=== PATIENT | male | born 1955 | race Caucasian/White ===

== ENCOUNTER → 2017-02-07 10:17 | Outpatient (CLI) | payer BC ==
[2015-01-06 05:58] VITALS: BMI 31.8
[~2017-02-07 10:17] MED LIST: CLARITIN-D1 TAB.SR . PO; HYDROCODONE-APA1 TAB PO; NORVASC10 MG PO; PERCOCET 10/3251 TA1 PO; PROVENTIL HFA6.7 GM INH; TENORMIN50 MG PO; ZESTRIL40 MG PO
== END | disposition home or self-care (01) ==
LOC: D.MRI 10:17
DX: M75.41 Impingement syndrome of right shoulder (principal)

== ENCOUNTER 2017-02-22 05:22 | Day surgery (SDC) | payer BC ==
[2017-02-21 09:29] LABS: HEMATOCRIT 40.6 % (42.0-54.0); MCH 31.5 pg (26.0-34.0); MCHC 34.5 g/dL (31.0-37.0); MCV 91.4 fL (80.0-100.0); MEAN PLATELET VOLUME 8.3 fL (7.4-10.4); RBC 4.44 10x6/uL (4.20-6.10); RDW 13.1 % (11.5-14.5); WBC 8.8 10x3/uL (4.8-10.8)
[~2017-02-22] VITALS: Ht 177.8 cm; Wt 102.1 kg
[~2017-02-22 05:22] MED LIST changes: -CLARITIN-D1 TAB.SR . PO
[2017-02-22] MEDS ORDERED: CLARITIN-D1 TAB.SR . PO (08:47)
[2017-02-22 08:56] VITALS: BP 125/767; Ht 177.8 cm; Wt 102.1 kg
[2017-02-22] MEDS ORDERED: HYDROCODONE-APA1 TAB PO (11:50)
--- NOTE | 2017-02-22 15:29 | NUR ---
5473 DISCHARGE INSTRUCTIONS AND PENDELUM EXERCISES DEMONSTRATED TO PATIENT; VERBALIZED UNDERSTANDING
--- NOTE | 2017-02-22 17:40 | OP ---
PATIENT NAME: MISTI SMITH MEDICAL RECORD: [id number] :51 LOCATION:D[facility] ADMISSION DATE: SURGEON: MARIA VICTORIA BUSTOS MD DATE OF OPERATION: 02/22/2017 Orthopedic Surgery Operative Note PREOPERATIVE DIAGNOSIS: 1. Rotator cuff tear of the right shoulder. 2. Impingement syndrome of the right shoulder. 3. Acromioclavicular arthritis. POSTOPERATIVE DIAGNOSES: 1. Rotator cuff tear of the right shoulder. 2. Impingement syndrome of the right shoulder. 3. Acromioclavicular arthritis. 4. Severe biceps tendinitis. PROCEDURES: 1. Arthroscopic rotator cuff repair. 2. Arthroscopic distal clavicle excision. 3. Arthroscopic biceps tenotomy. 4. Arthroscopic subacromial decompression with acromioplasty and bursectomy. SURGEON: Maria Victoria Bustos MD ANESTHESIA: General. INTRAOPERATIVE COMPLICATIONS: None. SUMMARY OF PATHOLOGIC FINDINGS: The patient did have a near complete tear of the biceps tendon. The patient also had a full thickness rotator cuff tear, type 3 acromion, and grade IV chondromalacia of the acromioclavicular joint. OPERATIVE SUMMARY IN DETAIL: After obtaining the appropriate preoperative orthopedic surgery consents as well as anesthetic consultation, evaluation and clearance, the patient was brought to the operating room and placed on the operating room table in supine position. After adequate general laryngeal mask airway was administered, the patient was placed in left lateral decubitus position. All pressure points were well padded to include down leg peroneal pad as well as axillary roll. The patient was held firmly to the operating table using the vacuum pack suction system. Right upper extremity and shoulder were then prepped and draped in a routine sterile fashion. The arm was held in the Arthrex traction boom at 30 degrees of forward flexion, 30 degrees of abduction with 10 pounds of traction laterally. Arthroscopy was established in the glenohumeral joint from a posterior portal. Anterior portal was established in the anterior safe interval. Diagnostic arthroscopy showed a full thickness rotator cuff tearing as well as biceps tendon tearing. Biceps tendon was taken down completely with the arthroscopic resector. At this point, a transrotator cuff portal was created to decorticate the medial aspect of the supraspinatus tendinous footprint and debride portions of the torn rotator cuff. Attention was then turned to the subacromial space. While on the subacromial space, the [place] tissue ablation system was utilized to denude the undersurface of the acromion of all soft tissue elements and release the coracoacromial ligament. A 5-0 barrel bur was used to perform acromioplasty at the level of OPERATIVE REPORT [id number] SARAHMISTI acromioclavicular joint, through a separate anterior arthroscopic portal, 1 cm distal clavicle was excised under direct arthroscopic visualization. Attention was then returned to the rotator cuff tear. Further portions of the greater tuberosity supraspinatus tendinous footprint was decorticated for bleeding bone. A single #2 FiberTape was passed in an inverted mattress fashion and then it was anchored laterally with a 5.5 SwiveLock from Arthrex. Having completed this, arthroscopy portals were closed in routine interrupted fashion using 4-0 Prolene. Sterile dressings were applied. The patient was awakened, taken to recovery room in stable condition. All final needle and sponge counts were correct. TRANSINT:[id number] Voice Confirmation ID: [id number] DOCUMENT ID: [id number] AKASH BARBA, MARIA VICTORIA DELA CRUZ at 1740 CC: [id number] DICTATION DATE: 02/22/17 1154 RUBBISH COLLECTOR: 02/22/17 1348 [facility] 02/22/17 [facility] [address] [place] [address]
== END 2017-02-22 13:35 | disposition home or self-care (01) ==
LOC: D.OPS 05:22 → D.PAN 08:30 → D.OPS 08:30 → D.PAN 09:30 → D.OPS 09:45 → D.PAN 10:10 → D.OPS 10:20 → D.PAN 10:20 → D.OPS 13:35
PROVIDERS: Anesthesiology
DX: M75.121 Complete rotator cuff tear or rupture of right shoulder, not specified as traumatic (principal); M75.41 Impingement syndrome of right shoulder; M13.811 Other specified arthritis, right shoulder; M75.21 Bicipital tendinitis, right shoulder

== ENCOUNTER 2019-06-26 06:00 | Day surgery (SDC) | payer MEDICARE, OTHER ==
[~2019-06-26] VITALS: Ht 177.8 cm; Wt 100.7 kg
[~2019-06-26 06:00] MED LIST changes: +CLARITIN-D1 TAB.SR . PO; +LISINOPRIL5 MG PO
[2019-06-26 06:22] LABS: HEMATOCRIT 36.6 % (42.0-54.0); HEMOGLOBIN 13.4 g/dL (13.5-17.5); MCH 31.2 pg (26.0-34.0); MCHC 36.6 g/dL (31.0-37.0); MCV 85.1 fL (80.0-100.0); RBC 4.3 10x6/uL (4.20-6.10); RDW 18.6 % (11.5-14.5); WBC 7.9 10x3/uL (4.8-10.8)
[2019-06-26] MEDS ORDERED: MUCINEX600 MG PO (07:13)
[2019-06-26 07:14] VITALS: BP 103/62; Ht 177.8 cm; Wt 100.7 kg
--- NOTE | 2019-06-26 09:48 | NUR ---
0900-REC'D FROM SURGERY. AWAKE AND ALERT, IV PATENT TO RIGHT WRIST,DENIES PAIN,VSS. CL IN EASY REACH, AT BEDSIDE. FULL LIQUID TRAY TO ROOM.
--- NOTE | 2019-06-26 09:48 | NUR ---
0945-DISCHARGE CRITERIA MET. AMBULATED TO RESTROOM AND URINATED WITHOUT DIFFICULTIES. VSS. TOLERATED FULL LIQUID TRAY. IV REMOVED FROM RIGHT WRIST WITH CATH INTACT,DISPOSED INTO SHARPS CONTAINER. REVIEWED DISCAHRGE PAPERWORK WITH PT AND SPOUSE. VERBALIZED UNDERSTANDING WITHOUT QUESTIONS OR CONCERNS. ESCORTED OUT VIA W/C BY VOLUNTEER WITH DRIVING HOME. PAPERWORK IN HAND
--- NOTE | 2019-06-26 10:24 | OP ---
PATIENT NAME: MISTI SMITH MEDICAL RECORD: [id number] :51 LOCATION:[facility] ADMISSION DATE: SURGEON: WARREN SANCHEZ MD DATE OF OPERATION: 06/26/2019 SURGEON: Warren Sanchez MD ANESTHESIA: TIVA by Matthew Keller CRNA DIAGNOSES: Elevated PSA 3.42 on November 2018, bladder outlet obstruction. PROCEDURE: Cystoscopy and transrectal ultrasound with prostate biopsy. FINDINGS: On cystoscopy, bladder neck obstruction with nonobstructive lateral lobes. Single ureteral orifices bilaterally with no bladder tumors. On transrectal ultrasound, 27-gram prostate with intraprostatic stones. SPECIMENS: Prostate biopsy cores. BLOOD LOSS: Minimal. CLINICAL HISTORY: This is a 63-year-old male, who had a PSA of 3.42 in November 2018. In April of 2018, the PSA was also 3.4. Back then, I had suggested that he get a prostate biopsy, but he did not wish to have it done at that time. In the meantime, he has been on testosterone injections and his PSA has risen very slightly. He does have issues with voiding including urge incontinence. He has been started on oxybutynin by his primary care doctor. Also, has nocturia times 3-4 and during the daytime, he has frequency every 1 hour. On digital rectal examination, a moderate-sized prostate was noted with no nodules on the prostate. He is not allergic to any medications. He comes today to have cystoscopy and prostate biopsy performed. He was given Ancef conduit bender to the OR. DESCRIPTION OF PROCEDURE: The patient was given IV sedation. He was then placed into the lithotomy position and prepped and draped. A 17-Sami cystoscope with 30-degree lens was used for visualization. Findings are as outlined above. The lateral lobes of the prostate are not obstructive. The main site of obstruction is the bladder neck. If the biopsy turns out to be benign, he would benefit from a UroLift procedure in a box configuration around the bladder neck. The bladder was emptied through the cystoscope sheath and then the scope was removed. We then introduced the transrectal ultrasound probe. Prostate size measurements were obtained. The prostate is relatively small at 27 grams. There are intraprostatic stones noted. Sextant biopsies were obtained with at least 3 cores from each sextant. Once all the specimens were obtained, the procedure was terminated. I will see the patient in followup in 2 weeks' time. TRANSINT:[id number] Voice Confirmation ID: [id number] DOCUMENT ID: [id number] OPERATIVE REPORT [id number] MISTI SMITH ROBERT S MD at 1024 CC: [id number] DICTATION DATE: 06/26/19903 SPLICING SUPERVISOR: 06/26/19917 [facility] 06/26/[address] [address]
[2019-07-28] MEDS ORDERED: TENORMIN50 MG PO (14:14)
[2019-07-28] MEDS ORDERED: FLUTICASONE PRO16 GM NASAL (14:15)
[2019-07-28] MEDS ORDERED: SINGULAIR10 MG PO (14:16)
[2019-07-28] MEDS ORDERED: PEPCID AC20 MG PO (14:16)
[2019-07-28] MEDS ORDERED: BREO ELLIPTA 11 EACH INH (14:17)
== END 2019-06-26 09:30 | disposition home or self-care (01) ==
LOC: D.OPS 06:00
PROVIDERS: Anesthesiology; ATTEND Urology
DX: N32.0 Bladder-neck obstruction (principal); N42.0 Calculus of prostate; Z01.812 Encounter for preprocedural laboratory examination

== ENCOUNTER 2019-07-29 05:06 | Day surgery (SDC) | payer MEDICARE, OTHER ==
[~2019-07-29] VITALS: Ht 177.8 cm; Wt 101.2 kg
[~2019-07-29 05:06] MED LIST changes: +BREO ELLIPTA 11 EACH INH; +FLUTICASONE PRO16 GM NASAL; +MUCINEX600 MG PO; +PEPCID AC20 MG PO; +SINGULAIR10 MG PO
[2019-07-29 05:40] LABS: CALC OSMOLALITY 265 mosm/kg (275-300); CALCIUM 8.5 mg/dL (8.5-10.1); CARBON DIOXIDE 27.4 mmol/L (21.0-32.0); CHLORIDE - SERUM 97 mmol/L (98-107); GLUCOSE 109 mg/dL (74-106); POTASSIUM - SERUM 4.5 mmol/L (3.5-5.1); SODIUM 133 mmol/L (136-145); UREA NITROGEN 10 mg/dL (7-18); eGFR NON AFRICAN AMERICAN 80 mL/min (90-120)
[2019-07-29 05:46] LABS: INR 1.1 (0.85-1.17); PROTIME 13.7 SECONDS (11.6-15.0)
[2019-07-29 06:04] LABS: BASOPHILS 0 % (0-2); EOSINOPHILS 1.4 % (0-7); HEMOGLOBIN 13.3 g/dL (13.5-17.5); IMMATURE GRANULOCYTES 0.5 % (0-5); LYMPHOCYTES 10.7 % (15-50); MCH 33.1 pg (26.0-34.0); MCHC 35.9 g/dL (31.0-37.0); MEAN PLATELET VOLUME 8.5 fL (7.4-10.4); MONOCYTES 13.6 % (2-11); NEUTROPHILS 73.8 % (40-80); RBC 4.02 10x6/uL (4.20-6.10); RDW 14.5 % (11.5-14.5); WBC 6.4 10x3/uL (4.8-10.8)
[2019-07-29] MEDS ORDERED: SULFAMETHOXAZOL1 TA2 PO (06:16)
[2019-07-29 06:29] VITALS: BP 134/79; Ht 177.8 cm; Wt 101.2 kg
[2019-07-29 06:31] LABS: PLATELET COUNT 242 10x3/uL (130-400)
--- NOTE | 2019-07-29 08:53 | NUR ---
0850 IV DC'ED WITH 175MLM LTC. DRESSING TO SITE CDI. Alexus JULIEN R.N.
--- NOTE | 2019-07-29 08:58 | OP ---
PATIENT NAME: MISTI SMITH MEDICAL RECORD: [id number] :51 LOCATION:D.[facility] ADMISSION DATE: SURGEON: WARREN SANCHEZ MD DATE OF OPERATION: 07/29/2019 SURGEON: Warren Sanchez MD ANESTHESIA: TIVA by Caridad Leung CRNA. DIAGNOSIS: Elevated PSA 3.42, prostate cancer. PROCEDURE: Transrectal ultrasound and prostate biopsy. FINDINGS: 21 gram prostate with internal hypoechoic areas. BLOOD LOSS: Minimal. CLINICAL HISTORY: This is a 63-year-old male, who had an elevated PSA of 3.42. He did have a prostate biopsy here recently. Unfortunately, the specimens were all mixed up in the handling. His pathology came back with prostate cancer, but we do not know where it came from. That is, we do not know which region of the prostate it came from. He comes now to have the prostate biopsy repeated. He was given Ancef hardwood floor installation helper to the OR. DESCRIPTION OF PROCEDURE: The patient was placed in lithotomy position after having been given IV sedation. Sextant biopsies were obtained with at least 3 cores from each sextant. Once all the specimens were obtained, then the procedure was terminated. I will see the patient in followup next week to review the pathology with him. TRANSINT:[id number] Voice Confirmation ID: [id number] DOCUMENT ID: [id number] WARREN SANCHEZ MD at 0858 CC: [id number] DICTATION DATE: 07/29/19809 PRODUCTION LINE MECHANIC: 07/29/19 0848 [facility] [address] [place] [address]
--- NOTE | 2019-07-29 12:28 | NUR ---
[address] SANCHEZ. PROCEDURE FINDINGS DISCUSSED WITH PATIENT & FAMILY. Alexus JULIEN R.N. 0429 DISCHARGE INFORMATION PROVIDED TO PATIENT INCLUDING MED REC, RTC APPT., [facility] D/C INSTRUCTIONS & POST PROSTATE BIOPSY D/C INSTRUCTIONS. PT VOICED UNDERSTANDING. TO PRIVATE CAR PER WHEELCHAIR BY VOLUNTEER. HOME WITH FEMALE DIMENSION QUARRY SUPERVISOR. Alexus JULIEN R.N.
== END 2019-07-29 09:17 | disposition home or self-care (01) ==
LOC: D.OPS 05:06 → D.PAN 07:30 → D.OPS 09:00 → D.PAN 09:05 → D.OPS 09:05
PROVIDERS: Anesthesiology; ATTEND Urology
DX: C61 Malignant neoplasm of prostate (principal); Z01.812 Encounter for preprocedural laboratory examination

== ENCOUNTER → 2019-08-12 09:27 | Outpatient (CLI) | payer MEDICARE, OTHER ==
[2019-07-29 06:29] VITALS: BMI 32.0
[~2019-08-12 09:27] MED LIST changes: +SULFAMETHOXAZOL1 TA2 PO
== END | disposition home or self-care (01) ==
LOC: D.CT 09:27
PROVIDERS: ATTEND Urology
DX: C61 Malignant neoplasm of prostate (principal)

== ENCOUNTER → 2019-08-14 07:59 | Outpatient (CLI) | payer MEDICARE, OTHER ==
[2019-07-29 06:29] VITALS: BMI 32.0
== END | disposition home or self-care (01) ==
LOC: D.NM 07:59
PROVIDERS: ATTEND Urology
DX: C61 Malignant neoplasm of prostate (principal)

== ENCOUNTER → 2019-08-29 11:48 | Outpatient (CLI) | payer MEDICARE, OTHER ==
[2019-07-29 06:29] VITALS: BMI 32.0
== END | disposition home or self-care (01) ==
LOC: D.LAB 11:48
PROVIDERS: ATTEND Urology
DX: C61 Malignant neoplasm of prostate (principal)